=== PATIENT | male | born 1990 | race Caucasian/White ===

== ENCOUNTER 2019-09-30 16:06 | Outpatient (CLI) | payer OTHER, SELFPAY ==
--- NOTE | ~2019-09-30 | US_ITS ---
EXAMINATION: US scrotum doppler DATE: 09/30/2019 16:50 INDICATION: Right testicular pain TECHNIQUE: Testicular sonogram utilizing grayscale and Doppler COMPARISON: None. FINDINGS: The right testis measures 4.2 x 2.6 x 3.4 cm. The left testis measures 4.1 x 2.6 x 3.1 cm. There is normal vascular flow to both testes. The right epididymis is normal with normal vascular david w. The left epididymis is normal with normal vascular flow. Bilateral varicoceles are noted which acc ount for the area of palpable abnormality. IMPRESSION: 1. No sonographic correlate for right testicular pain. 2. Bilateral varicoceles. Reviewed, dictated and finalized at location A. [employer]MENT REPRESENTATIVE
== END 2019-09-30 16:07 | disposition home or self-care (01) ==
PROVIDERS: PCP Emergency Medicine; Visit Provider Emergency Medicine
DX: I86.1 Scrotal varices (principal); N50.811 Right testicular pain
CPT/HCPCS: 76870; 93976